=== PATIENT | male | born 1975 | race African-American/Black ===

== ENCOUNTER 2019-04-13 08:19 | Emergency (ER) | payer BC ==
[~2019-04-13] VITALS: Ht 165.1 cm; Wt 91.2 kg
[~2019-04-13 08:19] MED LIST: BACTRIM-DS1 EA PO; IBUPROFEN600 MG ORAL; KEFLEX500 MG PO; NKM; NORCO 5-325 TA1 EACH PO
--- NOTE | 2019-04-13 08:35 | Emergency Room Report ---
History of Present Illness General Chief Complaint: Upper Extremity Injury Source: Patient Present Illness HPI Patient thinks that he strained or fractured his left thumb. He is having difficulty with flexing his left thumb. He complains of tenderness around the area of the presents to the emergency department today complaining of left hand pain. Patient states that he was holding a backpack when he got pulled back proximal MCP joints. Denies any swelling. Denies any deformity. Denies any other injuries. This occurred early this morning. Denies any numbness or tingling. No other modifying factors. No other associated signs and symptoms. No other complaints were noted. Allergies: Coded Allergies: No Known Allergies (Unverified , 11/29/13) Patient History Past Medical History: none Past Surgical History: none Pertinent Family History: none Social History: Denies: smoking, alcohol use, drug use Reviewed Nursing Documentation: PMH: Agreed; PSxH: Agreed Nursing Documentation-PMH Past Medical History: No Stated History Review of Systems All Other Systems: negative except mentioned in HPI Physical Exam Vital Signs Date Time Temp Pulse Resp B/P (MAP) Pulse Ox O2 Delivery O2 Flow Rate FiO2 04/13/19 08:22 98.8 92 20 157/96 (116) 95 Room Air Sp02 EP Interpretation: reviewed, normal General Appearance: normal inspection, well appearing, no apparent distress, alert Head: atraumatic Eyes: bilateral eye normal inspection ENT: hearing grossly normal, normal voice Respiratory: no respiratory distress Musculoskeletal: normal inspection, back normal, tender - Left thumb. Limited range of motion. No swelling Neurologic: normal inspection, alert, responsive, speech normal Psychiatric: normal inspection, judgement/insight normal, mood/affect normal Skin: normal inspection, normal color, no rash Procedures Splinting Splinting : Consent: Verbal Location: Left wrist Pre-Made Type: velcro Splint: thumb spica Pre-Proc Neuro Vasc Exam: normal Post-Proc Neuro Vasc Exam: normal Patient Tolerated: Well Complications: None Medical Decision Making Diagnostic Impression: Primary Impression: Left thumb sprain ER Course Patient presents to the emergency department today complaining of left thumb pain. Differential diagnosis include fracture dislocation versus strain. Given patient's presentation I feel the x-rays were indicated. 3 views of the left hand x-ray was negative for any fracture dislocation. Given the patient had negative x-ray I feel the patient likely sprained his thumb. There is no evidence of fracture. Patient was placed in a thumb spica for comfort recommend outpatient follow-up. Patient was given time off work. Patient is advised to follow up with primary doctor in 2-3 days and return the emergency room for any worsening symptoms and as needed. Other X-Ray Diagnostic Results Other X-Ray Diagnostic Results : X-Ray ordered: Left hand x-ray # of Views/Limited Vs Complete: 3 View Indication: Pain Interpretation: no dislocation, no soft tissue swelling, no fractures Impression: No acute disease Electronically Signed by: Electronically signed by Rick Roberts MD Last Vital Signs Date Time Temp Pulse Resp B/P (MAP) Pulse Ox O2 Delivery O2 Flow Rate FiO2 04/13/19 08:22 98.8 92 20 157/96 (116) 95 Room Air Status: improved Disposition: HOME, SELF-CARE Condition: Stable Rick Roberts MD April 13, 2019 08:35
--- NOTE | 2019-04-13 09:00 | NUR ---
ER DISCHARGE NOTE:x-ray was done Patient is cleared to be discharged per ERMD, pt is aox4, on room air, with stable vital signs. pt was given dc and prescription instructions, pt was able to verbalize understanding, pt is able to ambulate with steady gait. pt took all belongings.
[2019-04-13 09:15] VITALS: BP 157/96
[2019-04-13 09:17] VITALS: BP 157/96
--- NOTE | 2019-04-13 12:04 | Diagnostic Imaging Report ---
Indication: Pain, trauma Technique: 3 views left hand Comparison: none Findings: There are degenerative changes of the distal interphalangeal joints. No acute fractures. No dislocation. There is a multipartite old ulnar styloid fracture. This is ununited. Impression: No acute bony trauma Degenerative changes, as described
== END 2019-04-13 09:19 | disposition home or self-care (01) ==
LOC: EMR 08:47
DX: S63.602A Unspecified sprain of left thumb, initial encounter (principal); X50.9XXA Other and unspecified overexertion or strenuous movements or postures, initial encounter; Y92.89 Other specified places as the place of occurrence of the external cause
CPT/HCPCS: 29125; 99283

== ENCOUNTER 2019-05-03 14:05 | Emergency (ER) | payer BC ==
[~2019-05-03] VITALS: Ht 165.1 cm; Wt 91.2 kg
[2019-05-03 14:19] VITALS: BP 148/83
[2019-05-03 14:50] LABS: APPEARANCE,URINE CLEAR; BILIRUBIN, URINE NEGATIVE (NEGATIVE); GLUCOSE, URINE (UA) NEGATIVE (NEGATIVE); KETONES,URINE NEGATIVE (NEGATIVE); LEUKOCYTE ESTERASE ,URINE 1+ (NEGATIVE); NITRITE,URINE NEGATIVE (NEGATIVE); PH,URINE 5 (4.5-8.0); PROTEIN,URINE NEGATIVE (NEGATIVE); UROBILINOGEN,URINE NORMAL MG/DL (0.0-1.0)
[2019-05-03 14:52] LABS: COLOR,URINE YELLOW
[2019-05-03 14:57] LABS: ANION GAP 12 mmol/L (5-15); BLOOD UREA NITROGEN 14 mg/dL (7-18); CALCIUM 9.6 MG/DL (8.5-10.1); CARBON DIOXIDE 23 MMOL/L (21-32); CHLORIDE 103 MMOL/L (98-107); SODIUM 138 MMOL/L (136-145)
[2019-05-03] MEDS ORDERED: Lidocaine 2% Visc 15ml soln ORAL ONE (15:00)
[2019-05-03 15:08] LABS: ALANINE AMINOTRANSFERASE 52 U/L (12-78); ALBUMIN 4.3 G/DL (3.4-5.0); ALBUMIN/GLOBULIN RATIO 1.5 (1.0-2.7); ALKALINE PHOSPHATASE 90 U/L (46-116); ASPARTATE AMINO TRANSFERASE 26 U/L (15-37); BILIRUBIN,TOTAL 0.5 MG/DL (0.2-1.0)
--- NOTE | 2019-05-03 15:37 | Diagnostic Imaging Report ---
Indication: Chest pain Technique: One view of the chest Comparison: 01/01/2014 Findings: Lungs and pleural spaces are clear. Heart size is normal. No significant change Impression: No acute process
[2019-05-03 15:39] LABS: BASOPHILS % (AUTO) 0.7 % (0.0-2.0); EOSINOPHILS % (AUTO) 1.1 % (0.0-3.0); HEMATOCRIT 37.6 % (42.0-52.0); HEMOGLOBIN 13.4 G/DL (14.2-18.0); LYMPHOCYTES % (AUTO) 30.8 % (20.0-45.0); MEAN CORPUSCULAR VOLUME 88 FL (80-99); MONOCYTES % (AUTO) 5.8 % (1.0-10.0); NEUTROPHILS % (AUTO) 61.6 % (45.0-75.0); PLATELET COUNT 185 K/UL (150-450); RED BLOOD COUNT 4.29 M/UL (4.70-6.10); RED CELL DISTRIBUTION WIDTH 12.3 % (11.6-14.8); WHITE BLOOD COUNT 9.9 K/UL (4.8-10.8)
--- NOTE | 2019-05-03 15:39 | Emergency Room Report ---
History of Present Illness General Chief Complaint: Chest Pain Source: Medical Record Present Illness HPI This patient states that for the past few days he has had ongoing epigastric pain. He states the symptoms are persistent. He has had some nausea and a sour taste in his mouth. He denies diarrhea. He has had normal bowel movements. He denies vomiting. He has had nausea. He states that he is also had some pain radiating to his chest from his epigastric region. He does have a history of acid reflux and some type of "heart disease." He denies shortness of breath. He denies fever or chills. He denies dysuria or hematuria. He admits that he does drink alcohol heavily on the weekends. He drinks about 1 drink a day during the week. He denies tobacco or drug use. He has no other complaints. Allergies: Coded Allergies: No Known Allergies (Unverified , 11/29/13) Patient History Past Medical History: see triage record, HTN, CAD, other - HLP Social History: Reports: alcohol use - Heavy; Denies: smoking, drug use Reviewed Nursing Documentation: PMH: Agreed; PSxH: Agreed Nursing Documentation-PMH Past Medical History: No History, Except For Hx Hypertension: Yes Review of Systems All Other Systems: negative except mentioned in HPI Physical Exam Vital Signs Date Time Temp Pulse Resp B/P (MAP) Pulse Ox O2 Delivery O2 Flow Rate FiO2 05/03/19 14:09 98.2 78 18 159/95 (116) 96 Room Air Sp02 EP Interpretation: reviewed, normal General Appearance: no apparent distress, alert, GCS 15, non-toxic Head: normocephalic, atraumatic Eyes: bilateral eye normal inspection, bilateral eye PERRL ENT: hearing grossly normal, normal pharynx, no angioedema, normal voice Neck: full range of motion, supple/symm/no masses Respiratory: chest non-tender, lungs clear, normal breath sounds, no respiratory distress, no retraction, no accessory muscle use, speaking full sentences Cardiovascular #1: regular rate, rhythm, no edema Gastrointestinal: normal bowel sounds, soft, non-distended, no guarding, no rebound, tenderness - TTP in the epigastrium Rectal: deferred Musculoskeletal: back normal, gait/station normal, normal range of motion, non- tender Neurologic: alert, oriented x3, responsive, motor strength/tone normal, sensory intact, speech normal Psychiatric: judgement/insight normal, memory normal, mood/affect normal, no suicidal/homicidal ideation Skin: normal color, no rash, warm/dry, well hydrated Medical Decision Making Diagnostic Impression: Primary Impression: Gastritis ER Course This patient has a clinical presentation consistent with gastritis. The location of the pain and history and physical examination is consistent with this. I considered other concerning differentials, to include appendicitis, cholelithiasis, cholecystitis, pancreatitis, perforated viscus, aortic aneurysm , and pyelonephritis to name a few. However, laboratory workup in combination with medical and surgical history and US abdomen and physical exam makes these unlikely at this time. I did educate the patient on close return precautions and followup instructions. EKG Diagnostic Results Rate: normal Rhythm: NSR ST Segments: no acute changes Rhythm Strip Diag. Results EP Interpretation: yes Rate: 80's Rhythm: NSR, no PVC's, no ectopy Chest X-Ray Diagnostic Results Chest X-Ray Diagnostic Results : Chest X-Ray Ordered: Yes # of Views/Limited/Complete: 1 View Indication: Chest Pain EP Interpretation: Yes Interpretation: no consolidation, no effusion, no pneumothorax, no acute cardiopulmonary disease Impression: No acute disease Electronically Signed by: Kitty Day DO CT/MRI/US Diagnostic Results CT/MRI/US Diagnostic Results : Imaging Test Ordered: US ABD Impression Impression: Limited visualization of gallbladder as gallbladder is contracted. Negative for gallstones or dilated ducts Last Vital Signs Date Time Temp Pulse Resp B/P (MAP) Pulse Ox O2 Delivery O2 Flow Rate FiO2 05/03/19 14:35 78 18 Room Air 05/03/19 14:19 98.2 148/83 98 Disposition: HOME, SELF-CARE Condition: Improved Referrals: NON PHYSICIAN (PCP) Patient Instructions: Kitty Saravia DO May 03, 2019 15:39
--- NOTE | 2019-05-03 16:35 | Diagnostic Imaging Report ---
Indication: Abdominal pain, epigastric pain, nausea Technique: Montero-scale and duplex images of the upper abdomen were obtained Comparison: none Findings: Gallbladder contracted. Patient reportedly had recently eaten no gross gallstones or pericholecystic fluid. No gallbladder wall thickening. Sonographic Wing's sign is negative. Common bile duct measures 4 mm in diameter. No intrahepatic biliary ductal dilatation. Liver demonstrates normal echogenicity. Poorly visualized hypoechoic area adjacent to gallbladder fossa may represent a small area of focal sparing or small cyst. No other focal abnormality. Portal vein and hepatic veins are patent. Pancreas is unremarkable. Spleen is unremarkable. Left kidney measures 11.7 cm in length. Right kidney measures 11.3 cm length. Both kidneys demonstrate normal echogenicity. There is no hydronephrosis. No focal abnormality . Abdominal aorta is partially obscured by bowel gas, visualized portions are non-aneurysmal . Impression: Limited visualization of gallbladder as gallbladder is contracted. Negative for gallstones or dilated ducts Noted ability visualized portions of the abdominal aorta
[2019-05-03] MEDS ORDERED: Acetaminophen 500mg (ES) tab ORAL ONE (17:00)
[2019-05-03] MEDS ORDERED: OMEPRAZOLE40 M1 ORAL (17:17)
[2019-05-03] MEDS ORDERED: MAALOX MAXIMUM355 M1 PO (17:17)
[2019-05-03 17:32] VITALS: BP 113/73
== END 2019-05-03 17:35 | disposition home or self-care (01) ==
LOC: EMR 14:20
DX: K29.70 Gastritis, unspecified, without bleeding (principal); R07.9 Chest pain, unspecified; K21.9 Gastro-esophageal reflux disease without esophagitis; I10 Essential (primary) hypertension; I25.10 Atherosclerotic heart disease of native coronary artery without angina pectoris; F10.10 Alcohol abuse, uncomplicated
CPT/HCPCS: 36415; 71045; 76700; 80053; 80307; 81003; 83690; 83880; 84484; 85025; 93005; 96361; 96374; 99284; S0028